=== PATIENT | female | born 1995 | race Two or more races ===

== ENCOUNTER 2021-09-28 14:47 | Emergency (ER) | payer MEDICAID, OTHER ==
[~2021-09-28] VITALS: Ht 165.1 cm; Wt 53.1 kg
[2021-09-28 15:00] VITALS: BP 113/78
== END 2021-09-28 15:11 | disposition left against medical advice (07) ==
LOC: ER 14:47
DX: S61.512A Laceration without foreign body of left wrist, initial encounter (principal); Z53.21 Procedure and treatment not carried out due to patient leaving prior to being seen by health care provider; X78.8XXA Intentional self-harm by other sharp object, initial encounter; Y93.89 Activity, other specified; Y92.89 Other specified places as the place of occurrence of the external cause; Y99.8 Other external cause status